=== PATIENT | male | born 1995 | race Caucasian/White ===

== ENCOUNTER 2017-12-06 01:15 | Emergency (ER) | payer OTHER ==
[~2017-12-06] VITALS: Ht 175.3 cm; Wt 77.1 kg
[2017-12-06 01:19] VITALS: BP 127/85; Ht 175.3 cm; Wt 77.1 kg
== END 2017-12-06 02:30 | disposition other institution (70) ==
LOC: ED 01:15
DX: Z02.89 Encounter for other administrative examinations (principal); S00.212A Abrasion of left eyelid and periocular area, initial encounter; S00.81XA Abrasion of other part of head, initial encounter; M79.642 Pain in left hand; M79.641 Pain in right hand; F12.90 Cannabis use, unspecified, uncomplicated; X99.8XXA Assault by other sharp object, initial encounter; Y93.89 Activity, other specified; Y99.8 Other external cause status; Y92.89 Other specified places as the place of occurrence of the external cause
CPT/HCPCS: 90714